=== PATIENT | female | born 1945 | race Caucasian/White ===

== ENCOUNTER 2017-07-18 10:55 | Day surgery (SDC) | payer MEDICARE, OTHER ==
[~2017-07-18] VITALS: Ht 152.4 cm; Wt 44.5 kg
[~2017-07-18 10:55] MED LIST: ALTACE10 MG PO; ASPIRIN EC81 MG PO; BRIMONIDINE TART5 ML OPTH; CALCARB 600 W-1 EACH PO; CARVEDILOL12.5 MG PO; CITALOPRAM HBR20 MG PO; CLONIDINE HCL0.1 MG PO; COREG6.25 MG PO; CRESTOR40 MG PO; DORZOLAMIDE-TIM10 ML OPTH; HYDROCHLOROTHIA25 MG PO; LATANOPROST2.5 ML OPTH; LISINOPRIL20 MG PO; METOPROLOL TART25 MG PO; METOPROLOL TART50 MG PO; NICOTINE GUM4 MG BUCCAL; NORVASC10 MG PO; OXCARBAZEPINE300 MG PO; OXCARBAZEPINE600 MG PO; SYSTANE BALANCE10 ML OPTH; TIMOLOL MALEATE5 M2 OP
--- NOTE | 2017-07-18 12:24 | NUR ---
07/18/17 Jamia4 Jacklyn Herzog 1219-PATIENT ARRIVED TO PACU ON 3L NC O2 SAT 100% CO2 45. PATIENT LAYING ON RIGHT LATERAL SIDE. REACTIVE OPENS EYES TO VERBAL STIMULI VERY DROWSY. RR EVEN. IVF INFUSING. BANDAID CDI.
== END 2017-07-18 14:00 | disposition home or self-care (01) ==
LOC: DS 10:55 → OPS 10:55 → DS 12:00 → OPS 14:00
PROVIDERS: Specialist
PROC: 07JT3ZZ Inspection of Bone Marrow, Percutaneous Approach (ICD-10-PCS; principal; 2017-07-18 12:00)
DX: C94.6 Myelodysplastic disease, not elsewhere classified (principal); D47.3 Essential (hemorrhagic) thrombocythemia; I10 Essential (primary) hypertension; E78.5 Hyperlipidemia, unspecified; J44.9 Chronic obstructive pulmonary disease, unspecified; F17.210 Nicotine dependence, cigarettes, uncomplicated; Z79.899 Other long term (current) drug therapy; Z79.82 Long term (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; Z85.3 Personal history of malignant neoplasm of breast; Z85.43 Personal history of malignant neoplasm of ovary
CPT/HCPCS: 85025; 99152; 99153; J2250; J3010

== ENCOUNTER 2018-06-11 07:32 | Day surgery (SDC) | payer MEDICARE, OTHER ==
[~2018-06-11] VITALS: Ht 152.4 cm; Wt 59.4 kg
[~2018-06-11 07:32] MED LIST changes: +GABAPENTIN300 MG PO; +IBU800 MG PO; +IBUPROFEN800 MG PO; +IPRAT-ALBUT 0.5-3 ML INH; +NITROSTAT0.4 MG SL
--- NOTE | 2018-06-11 08:12 | NUR ---
0805-PATIENT REPORTED HAD CHEST PAIN ACHE MID STERNUM LAST WEEK TOOK 4 TUMS AND WENT AWAY. 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 DISCUSSED WITH DR. CURTIS ORDER OBTAINED FOR EKG.
--- NOTE | 2018-06-11 09:38 | NUR ---
06/11/18 0938 Jia Leal 0981 PATIENT ARRIVES TO PACU SLEEPING, AWAKENS WITH VERBAL STIMULI, THEN BACK TO SLEEP. RESP EVEN AND UNLABORED, OCCASIONAL SNORING, NC AT 2 LITERS ON ARRIVAL, SATS 98%.
--- NOTE | 2018-06-11 10:54 | NUR ---
CALL LIGHT W/IN REACH. ICED WATER GIVEN. CONTINUOUS PULSE OXIMETRY IN PLACE.
--- NOTE | 2018-06-11 11:53 | NUR ---
PATIENT OPENS HER EYES AND ASKS "AM I DONE?" WHEN THIS RN CONFIRMS, PATIENT REPORTS "THAT'S COOL. NOW I CAN GO HOME AND GO TO BED." PATIENT FALLS QUICKLY BACK TO SLEEP WHEN LEFT UNSTIMULATED. CONTINUOUS PULSE OXIMETER REMAINS IN PLACE. OXYGEN SATURATION 95% ON RA.
--- NOTE | 2018-06-11 13:51 | NUR ---
LE 1300: PATIENT PUSHES CALL LIGHT AND ASKS TO GO HOME. PATIENT STANDS AT THE BEDSIDE AND REPORTS FEELING "HEAVY". DISCHARGE INSTRUCTIONS GIVEN AND PATIENT IS GETTING DRESSED. PATIENT IS ASSISTED WITH HER SOCKS AND SHOES AND PATIENT TRANSFERS HERSELF TO AND THEN TO PERSONAL VEHICLE AND TOLERATES THAT WELL.
--- NOTE | 2018-06-12 07:58 | OR ---
[facility] [address], [place] [address] Signed DATE OF OPERATION: 06/11/2018 SURGEON: João Curtis MD PREOPERATIVE DIAGNOSES: 1. Personal history of colonic polyps. 2. Diverticulosis. 3. Internal hemorrhoids. 4. Chronic constipation and diarrhea. POSTOPERATIVE DIAGNOSES: 1. Moderate sigmoid diverticulosis. 2. 4 mm polyps at 20 cm and proximal right colon. 3. Moderate internal hemorrhoids. 4. Narrow angulated sigmoid colon. PROCEDURES: Colonoscopy with hot biopsy. ESTIMATED BLOOD LOSS: None. INDICATIONS: Danielle is a 72-year-old female who returns now for a followup colonoscopy. She has a personal history of colonic polyps along with diverticulosis and internal hemorrhoids. She also describes chronic constipation and diarrhea. She and her have been using Benefiber with good results. She told me there is no family history of colon cancer or polyps. She returns now for followup colonoscopy. I gave her a pamphlet on colonoscopy. We looked at that together along with the risks including, but not limited to gas, bloating, crampy abdominal pain, bleeding, perforation, requiring surgery, and missed diagnosis. We also discussed the need for IV conscious sedation. She had expressed understanding and wished to proceed. PROCEDURE NOTE: Danielle was taken into our endoscopy suite and placed in the left lateral decubitus position. She was given IV sedation with 5 mg of Versed and 100 mcg of fentanyl. She was also given 1 mg of glucagon to help with the procedure. A digital rectal exam was performed and this was unremarkable. The adult colonoscope was introduced and advanced under direct visualization of camera without difficulty. Danielle is small of build at 5 foot tall, 131 pounds, and a body mass index of 25. Consequently, her sigmoid colon is Electronically Signed By: JOÃO CURTIS MD 06/12/18 0758 PATIENT NAME: DANIELLE LEMONS OPERATIVE REPORT DATE OF : 43 REPORT #: [id number] PHYSICIAN: JOÃO CURTIS MD PCP: ALLIE NUNO REPORT IS CONFIDENTIAL AND NOT TO BE RELEASED WITHOUT AUTHORIZATION [facility] [address], [place] [address] Signed also somewhat narrow and angulated. It also has diverticula. It took a few minutes to get through that area with copious amounts of lubrication. After that, her left colon, transverse colon, and right colon opened up quite nicely. We eventually made out way over to the cecum where we could easily see the appendiceal orifice and the ileocecal valve. We did use some abdominal compression along with some extra sedation in order to help. Her prep was good. The scope was slowly withdrawn. She had a tiny polyp in the proximal right colon as well as at 20 cm, both easily removed with the help of hot biopsy forceps. Her rectum was just large enough to retroflex the scope and she does have some moderate internal hemorrhoids. After this, the gas was suctioned out and the colonoscope removed. Danielle tolerated the procedure quite well. In addition, we did order preoperative EKG and it showed her normal sinus rhythm with right bundle branch block, otherwise seen similar to her previous EKG. Danielle tolerated the procedure quite well. RECOMMENDATIONS: I will see Danielle back in my office in 7 to 14 days to review her results. João Curtis MD ALB/MODL /[id number] cc: MD Allie Cline, [facility] Yifan Gallardo MD Copies: JOÃO CURTIS MD, MERSHED MD ~ Electronically Signed By: JOÃO CURTIS MD 06/12/18 0758 PATIENT NAME: DANIELLE LEMONS OPERATIVE REPORT DATE OF : 43 REPORT #: [id number] PHYSICIAN: JOÃO CURTIS MD PCP: ALLIE NUNO REPORT IS CONFIDENTIAL AND NOT TO BE RELEASED WITHOUT AUTHORIZATION
== END 2018-06-11 13:10 | disposition home or self-care (01) ==
LOC: DS 07:32 → OPS 07:32 → DS 09:00 → OPS 09:00
PROVIDERS: Colon & Rectal Surgery
PROC: 0DBN8ZX Excision of Sigmoid Colon, Via Natural or Artificial Opening Endoscopic, Diagnostic (ICD-10-PCS; 2018-06-11)
PROC: 0DBF8ZX Excision of Right Large Intestine, Via Natural or Artificial Opening Endoscopic, Diagnostic (ICD-10-PCS; principal; 2018-06-11 09:00)
DX: D12.5 Benign neoplasm of sigmoid colon (principal); K64.8 Other hemorrhoids; K56.609 Unspecified intestinal obstruction, unspecified as to partial versus complete obstruction; K57.30 Diverticulosis of large intestine without perforation or abscess without bleeding; I10 Essential (primary) hypertension; K21.9 Gastro-esophageal reflux disease without esophagitis; E78.5 Hyperlipidemia, unspecified; F41.9 Anxiety disorder, unspecified; F32.9 Major depressive disorder, single episode, unspecified; F17.210 Nicotine dependence, cigarettes, uncomplicated; Z86.010 Personal history of colon polyps; Z79.899 Other long term (current) drug therapy; Z79.82 Long term (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
CPT/HCPCS: 99153; G0500; J1610; J2250; J3010; J7120

== ENCOUNTER 2019-06-01 05:07 | Observation (INO) | payer MEDICARE, OTHER ==
[~2019-06-01] VITALS: Ht 152.4 cm; Wt 54.2 kg
[~2019-06-01 05:07] MED LIST changes: -BRIMONIDINE TART5 ML OPTH; +BRIMONIDINE TART5 ML OU; +IBU-200200 MG PO; -IBU800 MG PO
--- OUTSIDE RECORDS SUMMARY | 2019-06-01 05:12 | XMS ---
PreManage Notification: PATRICIA ALTAMIRANO Security Emergency Medical Services Coordinator Events No recent Security Events currently on file CRITERIA MET - Group Notification CARE PROVIDERS RANI NUNO Physician Consulting Property Manager Current PHONE: [phone] RANI NUNO Primary Care Current PHONE: Unknown DR CIERRA AGUIRRE Primary Care 06/17/2016-Current PHONE: [phone] Bryce has no Care Guidelines for this patient. E.D. VISIT COUNT (12 MO.) 1 [facility] 1 SIMRAN Ching Gerhard TOTAL 2 NOTE: Visits indicate total known visits. ED/UCC VISIT TRACKING (12 MO.) 06/01/2019 05:09 [facility] [place] TYPE: Emergency COMPLAINT: - FLU SYMPTOMS 02/05/2019 08:39 [facility] [place] TYPE: Emergency DIAGNOSES: - cough,fever - Bronchitis, not specified as acute or chronic - Chronic obstructive pulmonary disease, unspecified INPATIENT VISIT TRACKING (12 MO.) No inpatient visits to display in this time frame [email or web address]
[2019-06-01] MEDS ORDERED: LISINOPRIL40 MG PO (05:46)
[2019-06-01] MEDS ORDERED: AMLODIPINE BESY10 MG PO (05:48)
--- NOTE | 2019-06-01 10:10 | NUR ---
0923: PT ARRIVED TO MED-SURG VIA Student DesignedCHER. ASSESSMENT COMPLETED, VITAL SIGNS CHECKED AND PT ORIENTED TO HER ROOM. PT DENIES ANY SOB AT REST, SAT 94% ON 2L. SEE ASSESSMENT.
--- NOTE | 2019-06-01 10:37 | NUR ---
Pt ambulated to the br and voided while wearing her o2. Upon return to bed she states her breathing is "worse that when I came here". Sat on 2l is 96%, lung sounds remain decreased and coarse. Called for a breathing treatment. Pt is coughing up large amounts of think yellow mucus which she was encouarged to continue to cough up.
--- NOTE | 2019-06-01 10:58 | NUR ---
PT RESTING IN HER BED AFTER FINISHING HER NEB AND SHE STATES SHE IS FEELING MUCH BETTER NOW. WILL CONTINUE TO MONITOR.
--- NOTE | 2019-06-01 12:58 | NUR ---
PT HAD REMOVED HER O2 AND HER SAT IS 88%. HER O2 WAS REPLACED AT 2L AND SAT INCREASED INTO THE 90'S. PT STATES HER BREATHING IS IMPROVING AT THIS TIME. SEE ASSESSMENT.
--- NOTE | 2019-06-01 13:37 | NUR ---
PT RESTING IN HER BED AND SHE DENIES ANY CURRENT SOB. SAT ON 2L IS 95%, O2 DECREASED TO 1L.
--- NOTE | 2019-06-01 14:37 | NUR ---
Sat on 1L is now 91%, which the pt has been taking on and off since her arrival to this dept. Pt did not eat her soup as she states it taseted bad as it has no salt. She ordered a sandwich and is also complaining that it is not good and she is upset she can't have ham. She informed me that she does not eat low sodium at home. She was instructed as to why it was ordered and she now states she is going home today and that I need to notify Dr Harris.
--- NOTE | 2019-06-01 14:45 | NUR ---
Dr Harris called and notified of the pt's statement that she is going to be discharged this evening. Dr Harris reqeusted the pt ambulate in the halls and see how she tolerates it.
--- NOTE | 2019-06-01 14:57 | NUR ---
PT AMBULATED ONE LAP AROUND THE HALLS AND HER RR IS 24 AND HER SAT ON 1L IS 88%. ONCE SAT DOWN HER SAT QUICKLY INCREASED TO 94% ON HER 1L. PT STATES THAT THIS IS A LONGER DISTANCE THAN SHE CAN NORMALY WALK.
--- NOTE | 2019-06-01 15:05 | NUR ---
O2 removed as ordered.
--- NOTE | 2019-06-01 15:13 | NUR ---
PT AMBULATED TO THE BR ON ROOM AIR AND UPON RETURNING TO BED HER SAT IS 85%. AFTER SITTING IN BED FOR ABOUT A MINUTE HER SAT INCREASED TO 90%.
--- NOTE | 2019-06-01 15:38 | NUR ---
I spoke with the pt per Dr Harris's request and the pt states she is agreeable to not going home today if her diet is changed so she can eat as she likes. Dr Harris notifed.
--- NOTE | 2019-06-01 16:11 | NUR ---
Pt resting at the bedside visiting with her spouse. Pt now is ordering dinner.
--- NOTE | 2019-06-01 17:26 | NUR ---
Pt sitting up at the bedside having dinner at this time. Sat 92% on room air and she states her breathing is "not too bad".
--- NOTE | 2019-06-01 17:54 | NUR ---
PATIENT IN BED WATCHING TV, IN ROOM. CALL LIGHT IN REACH. NO FURTHER NEEDS AT THIS TIME.
--- NOTE | 2019-06-01 18:33 | NUR ---
PT RESTING AT THE BEDSIDE AND STATES SHE IS BREATHING "ANSHUL HEAVY". LUNG SOUNDS ARE COARSE AND DECREASED. RT CALLED FOR A TREATMENT.
--- NOTE | 2019-06-01 19:05 | NUR ---
BEDSIDE REPORT RECEIVED FROM CANDI. PT DENIES NEEDS AT THIS TIME. CALL LIGHT IN REACH.
--- NOTE | 2019-06-01 21:34 | EKG ---
[facility] [address] [facility] [place] [address] Signed Sinus tachycardia Biatrial enlargement Right bundle branch block Abnormal ECG Confirmed by SATINDER REDDING MD ([id number]) on 06/01/2019 9:34:14 PM Electronically Signed By: SATINDER REDDING MD 06/01/19 2134 PATIENT NAME: PATRICIA ALTAMIRANO Electrocardiogram DATE OF : 43 PHYSICIAN: SATINDER REDDING MD REPORT #: [id number] REPORT IS CONFIDENTIAL AND NOT TO BE RELEASED WITHOUT AUTHORIZATION
--- NOTE | 2019-06-01 21:35 | NUR ---
PT ASSESSMENT COMPLETE. PT DENIES PAIN, NAUSEA, OR SOB. PT REPORTS THAT SHE IS OFTEN CONFUSED, STATES THAT SHE KNOWS THAT SHE HAS ALZHEIMER'S. PT IS PLEASANT THROUGHOUT ASSESSMENT. LUNG SOUNDS DIM IN BILATERAL UPPER LOBES, EXPIRATORY WHEEZE AND RHONCI NOTED IN BILATERAL LOWER LOBES. PT REPORTS COUGH WITH MUCOUS PRODUCTION. IV SITE FOUND TO BE LEAKING. NEW IV SITE PLACED. PT TOLERATED WELL. PT DENIES FURTHER NEEDS AT THIS TIME. CALL LIGHT WITHIN REACH.
--- NOTE | 2019-06-02 02:15 | NUR ---
WENT IN TO THE ROOM TO TAKE V/S. PATIENT WOKE UP. THIS CITY ROUTE DRIVER GREETED GOOD MORNING AND TOLD THAT I AM GOING TO TAKE V/S. PATIENT GOT UP AND STATED I NEED TO GO TO THE BATHROOM. THIS CITY ROUTE DRIVER PUT SOCKS ON TO PATIENT. OFFERED WALKER, PATIENT STATED '"DONT NEED WALKER". WALKING TO THE BATHROOM ASKED PATIENT IF SHE IS OKAY. SHE SAID SHE OKAY UNTIL REACHED TO THE BATHROOM STATED A LITTLE DIZZY AND WANTED TO GO BACK TO BED. I HAVE PATIENT SIT ON THE CHAIR AND TURNED THE BATHROOM LIGHT FOR HELP. RN YUKO CAME AND PRIMARY RN SUMMER CAME. PATIENT DID USE THE BATHROOM. PATIENT IS BACK IN BED. V/S AND I&O TAKEN AND CHARTED BY MERRILL WHEELER. DID ASK PATIENT IF ANYTHING ELSE WE CAN DO OR GET SOMETHING. PATIENT DENIES OF FURTHER NEEDS. CALL LIGHT IN REACH.
--- NOTE | 2019-06-02 02:30 | NUR ---
PT ASSESSMENT COMPLETE. PT DENIES PAIN, NAUSEA, OR SOB. PT UP TO BATHROOM WITH DENTAL APPLIANCE REPAIRER ASSISTANCE. PT REPORTING DIZZINESS AFTER WALKING TO THE BATHROOM. PT REMAINS CONFUSED, ANXIOUS AND ANGRY. STATES "SHE JUST CAME IN HERE AND WOKE ME UP, MADE ME GET UP TO THE BATHROOM, AND THAT'S WHY I GOT DIZZY. I NEED TO GET SOME REST". REMINIDED PT THAT WE DISCUSSED POC AT PREVIOUS ASSESSMENT. PT HAS NO RECOLLECTION OF THIS. LUNG SOUNDS CLEAR AT THIS TIME. NO COUGH NOTED DURING ASSESSMENT. PT INQUIRING ABOUT WHAT TIME SHE CAN SEE THE DOCTOR AND GO HOME TOMORROW. EDUCATION PROVIDED. CALL LIGHT IN REACH. PT DENIES FURTHER NEEDS.
--- NOTE | 2019-06-02 04:57 | NUR ---
PT UTILIZES CALL LIGHT, REQUESTS ASSISTANCE TO USE THE BATHROOM. PT STATES SHE NEEDS TO HAVE BM. PT ASSISTED BACK TO BED, STATES THAT SHE DOESN'T FEEL WELL, REPORTS FEELING SOB. SA02 94%. PT CONTINUES TO DISCUSS DISCHARGE. EDUCATION REGARDING STAYING IN THE HOSPITAL IF SHE IS NOT FEELING WELL. PT STATES" I CAN'T STAY HERE, I'VE GOT TO GET HOME TO MY .". PT DENIES FURTHER NEEDS AT THIS TIME. CALL LIGHT IN REACH.
--- NOTE | 2019-06-02 06:52 | NUR ---
PT MOVED TO ROOM 124 DUE TO THE NEED FOR THE ISOLATION ROOM.
--- NOTE | 2019-06-02 08:15 | NUR ---
PT SITTING UP IN BED AWAKE. ALERT AND ORIENTED TO ALL AT THIS TIME. ASSESSMENT COMPLETED. PT DENIES PAIN OR SOB. IV INFUSING WNL. STATES SHE IS NOT HUNGRY AND DOES NOT WANT BREAKFAST. OFFERED ENSURE AND PT DRANK THE WHOLE THING. CALL LIGHT WITHIN REACH, HAS BEEN CALLING APPROPRIATELY.
[2019-06-02] MEDS ORDERED: OXCARBAZEPINE150 MG PO (08:58)
[2019-06-02] MEDS ORDERED: PULMICORT0.5 MG/2 M INH (08:59)
[2019-06-02] MEDS ORDERED: OMEPRAZOLE20 MG PO (09:01)
[2019-06-02] MEDS ORDERED: VENTOLIN HFA18 GM INH (09:05)
[2019-06-02] MEDS ORDERED: DOXYCYCLINE HY100 MG PO (09:07)
[2019-06-02] MEDS ORDERED: PREDNISONE20 MG PO (09:09)
--- NOTE | 2019-06-02 10:20 | NUR ---
PATIENT WAS ADMITTED AT HIGH RISK FOR MALNUTRITION DUE TO RECENT WEIGHT LOSS. STATES SHE WENT DOWN FROM 133-135 LBS TO 119 LBS OVER A FEW MONTHS. SHE DIDN'T HAVE A GREAT APPETITE. 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 WE DISCUSSED EATING/DRINKING ENOUGH TO PREVENT FURTHER WEIGHT LOSS. ORAL NUTRITION SUPPLEMENTS ARE AN OPTION, TOO. WILL REMAIN AVAILABLE.
--- NOTE | 2019-06-02 10:25 | NUR ---
PT SBA TO RESTROOM TO VOID. AT BEDSIDE NOW. PT GETTING DRESSED INDEPENDENTLY. PT AWAITING DC.
--- NOTE | 2019-06-02 16:10 | NUR ---
1030: Discussed educational material with patient regarding COPD. Pt introduced to the COPD stop light system for symproms managment. Recomendation to clinical pharmacy to add LAMA to patient's care plan based on history for COPD admissions and level of shortness of breath. Lastly, pt trained to used quick relief inhaler with space with demo back.
== END 2019-06-02 11:33 | disposition home or self-care (01) ==
LOC: ED 05:07 → MS 05:10
PROVIDERS: ADMIT Internal Medicine
DX: J44.1 Chronic obstructive pulmonary disease with (acute) exacerbation (principal); J96.01 Acute respiratory failure with hypoxia; I10 Essential (primary) hypertension; K21.9 Gastro-esophageal reflux disease without esophagitis; F32.9 Major depressive disorder, single episode, unspecified; Z79.82 Long term (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; Z79.899 Other long term (current) drug therapy
CPT/HCPCS: 36415; 71045; 80048; 80053; 83605; 83735; 83880; 84484; 85025; 87502; 93005; 93010; 94640; 94664; 94760; 96372; 96374; 96375; 96376; 99285-25; 99406; G0378; J0696; J1650; J2930; J7121

== ENCOUNTER 2020-11-15 00:16 | Observation (INO) | payer MEDICARE, OTHER ==
[~2020-11-15] VITALS: Ht 152.4 cm; Wt 47.2 kg
[~2020-11-15 00:16] MED LIST changes: +AMLODIPINE BESY10 MG PO; +DOXYCYCLINE HY100 MG PO; +LISINOPRIL40 MG PO; +OMEPRAZOLE20 MG PO; +OXCARBAZEPINE150 MG PO; +PREDNISONE20 MG PO; +PULMICORT0.5 MG/2 M INH; +VENTOLIN HFA18 GM INH
--- OUTSIDE RECORDS SUMMARY | 2020-11-15 00:18 | XMS ---
PreManage Notification: PATRICIA ALTAMIRANO Security Assistant Printer Floor Covering Events No recent Security Events currently on file CRITERIA MET - Group Notification - [facility] C[facility] There are no care providers on record at this time. Bryce has no Care Guidelines for this patient. ECarmelo VISIT COUNT (12 MO.) 1 SIMRAN Shah TOTAL 1 NOTE: Visits indicate total known visits. ED/UCC VISIT TRACKING (12 MO.) 11/15/2020 00:16 [facility] [place] TYPE: Emergency COMPLAINT: - VOMITING,WEAKNESS INPATIENT VISIT TRACKING (12 MO.) No inpatient visits to display in this time frame [email or web address]
[2020-11-15] MEDS ORDERED: BUDESONIDE0.5 MG/2 M INH (01:03)
[2020-11-15] MEDS ORDERED: CITALOPRAM HBR40 MG PO (01:03)
[2020-11-15] MEDS ORDERED: GERI-KOT8.6 MG PO (01:04)
[2020-11-15] MEDS ORDERED: CARVEDILOL25 MG PO (01:04)
[2020-11-15] MEDS ORDERED: HYDROCHLOROTH12.5 MG PO (01:04)
[2020-11-15] MEDS ORDERED: ROSUVASTATIN CA40 MG NG (01:04)
[2020-11-15] MEDS ORDERED: ALENDRONATE SOD70 MG PO (01:04)
[2020-11-15] MEDS ORDERED: CARBAMAZEPINE300 MG PO (01:04)
[2020-11-15] MEDS ORDERED: GABAPENTIN600 MG (01:06)
--- NOTE | 2020-11-15 01:15 | NUR ---
0029 called to Code CVA in ER. 0054 EKG obtained and given to physician. COVID swab also obtained and sent to lab.
--- NOTE | 2020-11-15 03:16 | NUR ---
0300 - arrived from ED via stretcher. alert and oriented. 0316- On 2LNC, lungs thight with exp wheezing. L forehead hematoma soft, movable. edema both upper lids, unknown if normal,Neuro checks hourly ordered R eye sluggish than Left,,alert and oriented. strong charter bus driver bilat. bruised L chest. skin abrasions L thumb and bandaid over L 1st finfer bony prominences. no edema of LE. IViste RAC intact. slightly irritable mood. smoker, denies need for patch. cooperative
--- NOTE | 2020-11-15 05:09 | NUR ---
RESTING, EYEES CLOSED, NO DISTRESS, IRRITABLE MOOD BUT COOPERATIVE WITH HOURLY NEUROCHECKS, DECREASED HEMATOMA OF L FOREHEAD, SCRAPED AREA MORE NOTICEABLE, R EYE /UPPER EYELID MORE EDEMATOUS THAN L, R PUPIL SLUGGISH. IVF INFUSING, HOB ELEVATED ICE TO HEMATOMA, ALERT AND ORIENTED TO PLACE AND SITUATION BUT NOT TO DATE OR CURRENT WORLD EVENTS
--- NOTE | 2020-11-15 05:36 | NUR ---
PT ADMITTED FROM ED EARLIER, ON O2 2LNC NOT CHRONIC, LUNGS W WHEEZES AND DIM SMOKER, HX COPD. DENIES SOB WITH EXERTION. PT FELL IN ED, AND HAD SOME TRAUMA TO L SIDE. L FOREHEAD HEMATOMA PRESENT ON ADMIT FROM FALL, MUCH IMPROVED AND DOWN INSIZE, SCRAPED AREA PRESENT. R EYE MORE EDEMATOUS THAN L, SLUGGISH L PUPIL, UNKNOWN IF NORMAL, DENIED VISUAL CHAGES. BRUISED L CHEST, SCRAPED AREA L THUMB AND FIRST FINGER TOP BONY AREA, BANDAID IN PLACE. IVF INFUSING W/O PROBLEMS. HOURLY NEURO, NO CHANGES, DISORIENTED TO DATE ONLY, HOB ELEVATED ICE TO HEMATOMA.IRRITABLE MOOD, BUT EASILY REORIENTED
--- NOTE | 2020-11-15 06:20 | NUR ---
PATIENT WAS PICKED UP/ LEFT THE ROOM FOR MRI.
--- NOTE | 2020-11-15 07:39 | NUR ---
Patient sitting up on edge of bed, alert/oriented to self, place and situation. Patient unable to tell me the date. Patient denies pain at this time. Upper and lower extremities are strong and equal. Speech is appropriate and clear. Breakfast ordered. No needs. Personal supplies and call light within reach.
--- NOTE | 2020-11-15 08:17 | NUR ---
WHITEBORD WAS UPDATED. PT WAS IN BED EATING BREAKFAST. PT REFUSED WARM WASHCLOTH. NO FURTHER NEEDS AT THIS TIME. CALL LIGHT IS WITHIN REACH.
--- NOTE | 2020-11-15 09:15 | NUR ---
PATIENT UP TO AMBULATE IN HALLWAY, PER HER NORMAL AMBULATING FROM HER CHAIR TO BATHROOM. PATIENT DID WELL WITH LIGHT ASSIST (ARM SUPPORT FROM NURSING STAFF) AND WAS STEADY ON HER FEET.
--- NOTE | 2020-11-15 09:27 | NUR ---
PATIENT WAS IN BED, NURSE IN ROOM, PATIENT WAS ENCOURAGED TO DO BREATHING EXERCISES EVERY HOUR, AND TO PRONE TO HELP HER LUNGS, PATIENT WILL GO ON A WALK WITH THIS CNA2 A LITTLE LATER. NURSE CHARTED VITAL SIGNS NOTHING ELSE TO REPORT AT THIS TIME
--- NOTE | 2020-11-15 09:31 | NUR ---
PATIENT WENT FOR A WALK WITH CHARGE NURSE, THIS CNA2 FOLLOWED WITH WHEEL CHAIR, PATIENT DID WELL WITH AMBULATION, IN ROOM, WILL RETURN TO DO VITAL SIGNS
--- NOTE | 2020-11-15 09:40 | NUR ---
I was able to meet with Danielle and her this morning to discuss her patient care experience. Danielle reported that she has been happy with her care in the hospital. She feels that the nurses "have taken good care of me" and she feels like she understands her medications, why she is taking them, and the side effects that they could have. She denies pain at this time, and she does not have any questions or concerns expressed to this RN. Her remains in the room with her, both are a bit hard of hearing, but they do understand the questions asked as evidenced by their ability to answer appropriately and in context of the questions asked.
--- NOTE | 2020-11-15 17:19 | EKG ---
[facility] [address] [place] [address] Signed Sinus rhythm with 1st degree AV block Right bundle branch block Abnormal ECG When compared with ECG of 01-JUN-2019 05:29, ND interval has increased Confirmed by THIAGO RESENDIZ MD ([id number]) on 11/15/2020 5:19:22 PM Electronically Signed By: THIAGO RESENDIZ MD 11/15/20 1719 PATIENT NAME: ADARSHPATRICIA MIKE Electrocardiogram DATE OF : 43 PHYSICIAN: THIAGO RESENDIZ MD REPORT #: [id number] REPORT IS CONFIDENTIAL AND NOT TO BE RELEASED WITHOUT AUTHORIZATION
== END 2020-11-15 10:40 | disposition home or self-care (01) ==
LOC: ED 00:16 → MS 00:17
PROVIDERS: ADMIT Internal Medicine; ATTEND Internal Medicine
DX: R42 Dizziness and giddiness (principal); I10 Essential (primary) hypertension; J44.9 Chronic obstructive pulmonary disease, unspecified; F17.210 Nicotine dependence, cigarettes, uncomplicated; I44.0 Atrioventricular block, first degree; I65.21 Occlusion and stenosis of right carotid artery; I45.10 Unspecified right bundle-branch block; S00.03XA Contusion of scalp, initial encounter; Z20.822 Contact with and (suspected) exposure to COVID-19; W19.XXXA Unspecified fall, initial encounter; Y92.009 Unspecified place in unspecified non-institutional (private) residence as the place of occurrence of the external cause
CPT/HCPCS: 70450; 70496; 70498; 70551; 71045; 80053; 84484; 85025; 85610; 85730; 93005; 93010; 94760; 96374; 99285-25; C9803; G0378; J2405; J7040; J7121; Q9967; U0003

== ENCOUNTER 2021-03-07 14:27 | Emergency (ER) | payer MEDICARE, OTHER ==
[~2021-03-07] VITALS: Ht 152.4 cm; Wt 44.0 kg
[~2021-03-07 14:27] MED LIST changes: +ALENDRONATE SOD70 MG PO; +BUDESONIDE0.5 MG/2 M INH; +CARBAMAZEPINE300 MG PO; +CARVEDILOL25 MG PO; +CITALOPRAM HBR40 MG PO; +GERI-KOT8.6 MG PO; +HYDROCHLOROTH12.5 MG PO; +NEURONTIN300 MG PO; +ROSUVASTATIN CA40 MG NG
--- OUTSIDE RECORDS SUMMARY | 2021-03-07 14:28 | XMS ---
PreManage Notification: PATRICIA ALTAMIRANO Security Student Recruiter Events No recent Security Events currently on file CRITERIA MET - PDMP - Group Notification CARE PROVIDERS MANDI ALEXANDER [facility] 11/15/2020-Current PHONE: [phone] Bryce has no Care Guidelines for this patient. Care History Medical/Surgical 11/15/2020 [facility] - Patient is currently established with [facility]. If patient is seen in the ED during business hours. Please contact CHWs at [facility]. Care Recommendation: If this patient has had 5 or more Emergency Department visits in the last 12 months.\T\nbsp; Patient will require education on the scope and purpose of the ED as an acute care provider not a Primary Care Provider and should not be utilized for chronic conditions.\T\nbsp; These are guidelines and the provider should exercise clinical judgment when providing care. E.D. VISIT COUNT (12 MO.) 2 [facility] TOTAL 2 NOTE: Visits indicate total known visits. ED/UCC VISIT TRACKING (12 MO.) 03/07/2021 14:27 [facility] [place] TYPE: Emergency COMPLAINT: - DIZZINESS 11/15/2020 00:16 [facility] [place] TYPE: Emergency COMPLAINT: - VOMITING,WEAKNESS INPATIENT VISIT TRACKING (12 MO.) 11/15/2020 00:[address] [facility] [place] TYPE: Observation COMPLAINT: - ACUTE VERTIGO DIAGNOSES: - Chronic obstructive pulmonary disease, unspecified - Nicotine dependence, cigarettes, uncomplicated - Unspecified place in unspecified non-institutional (private) residence as the place of occurrence of the external cause - Essential (primary) hypertension - Atrioventricular block, first degree - Unspecified fall, initial encounter - Occlusion and stenosis of right carotid artery - Unspecified right bundle-branch block - Contusion of scalp, initial encounter - Dizziness and giddiness [id number]
[2021-03-07] MEDS ORDERED: TRANSDERM-SCOP1 EACH TD (18:19)
== END 2021-03-07 18:24 | disposition home or self-care (01) ==
LOC: ED 14:27
DX: R42 Dizziness and giddiness (principal); I10 Essential (primary) hypertension; J44.9 Chronic obstructive pulmonary disease, unspecified; F17.200 Nicotine dependence, unspecified, uncomplicated; Z79.899 Other long term (current) drug therapy; Z79.82 Long term (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
CPT/HCPCS: 70450; 99284-25

== ENCOUNTER 2021-05-23 13:10 | Emergency (ER) | payer MEDICARE ==
[~2021-05-23] VITALS: Ht 152.4 cm; Wt 40.4 kg
--- NOTE | ~2021-05-23 | EKG ---
[facility] [address] [facility] [place], [place] [address] Draft EK completed, results pending confirmation PATIENT NAME: PATRICIA ALTAMIRANO Electrocardiogram DATE OF : 43 PHYSICIAN: PRELIMINARY REPORT #: [id number] REPORT IS CONFIDENTIAL AND NOT TO BE RELEASED WITHOUT AUTHORIZATION
[~2021-05-23 13:10] MED LIST changes: +ADULT LOW DOSE81 MG PO; -ASPIRIN EC81 MG PO; +TRANSDERM-SCOP1 EACH TD
--- OUTSIDE RECORDS SUMMARY | 2021-05-23 13:14 | XMS ---
PreManage Notification: PATRICIA ALTAMIRANO Security Paste Up Copy Camera Operator Events No recent Security Events currently on file CRITERIA MET - Group Notification - PDMP - [facility] - Has Care Guidelines CARE PROVIDERS MANDI ALEXANDER [facility] 11/15/2020-Current PHONE: [phone] Bryce has no Care Guidelines for this patient. Care History Medical/Surgical 03/08/2021 [facility] Patient assisted to ER from walk in clinic provider assessment on 03/07/2021 11/15/2020 [facility] - Patient is currently established with [facility]. If patient is seen in the ED during business hours. Please contact CHWs at [facility]. Care Recommendation: If this patient has [...] providing care. E.D. VISIT COUNT (12 MO.) [address] [facility] TOTAL 3 NOTE: Visits indicate total known visits. ED/UCC VISIT TRACKING (12 MO.) 05/23/2021 13:11 [facility] [place] TYPE: Emergency COMPLAINT: - LOW B/P 03/07/2021 14:27 [facility] [place] TYPE: Emergency COMPLAINT: - DIZZINESS DIAGNOSES: - long-term (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 - Essential (primary) hypertension - Dizziness and giddiness - Nicotine dependence, unspecified, uncomplicated - Chronic obstructive pulmonary disease, unspecified - Other log getter (current) drug therapy 11/15/2020 00:16 [facility] [place] TYPE: Emergency COMPLAINT: - VOMITING,WEAKNESS INPATIENT VISIT TRACKING (12 MO.) 11/15/2020 00:17 [facility] [place] TYPE: Observation COMPLAINT: - ACUTE VERTIGO [...] scalp, initial encounter - Dizziness and giddiness [email or web address]
[2021-05-23] MEDS ORDERED: MIRTAZAPINE15 MG PO (13:39)
[2021-05-23] MEDS ORDERED: MECLIZINE HCL25 MG PO (13:40)
== END 2021-05-23 17:16 | disposition home or self-care (01) ==
LOC: ED 13:10
DX: R55 Syncope and collapse (principal); R53.1 Weakness; R63.4 Abnormal weight loss; I10 Essential (primary) hypertension; Z85.43 Personal history of malignant neoplasm of ovary; F17.200 Nicotine dependence, unspecified, uncomplicated; Z79.82 Long term (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; Z79.899 Other long term (current) drug therapy
CPT/HCPCS: 36415; 71045; 80053; 80156; 81001; 83735; 84484; 85025; 93005; 93010; 99284-25; J7040

== ENCOUNTER 2021-07-15 14:26 | Emergency (ER) | payer MEDICARE, OTHER ==
[~2021-07-15] VITALS: Ht 152.4 cm; Wt 36.3 kg
[~2021-07-15 14:26] MED LIST changes: +CEFPODOXIME PR200 MG PO; +MECLIZINE HCL25 MG PO; +MIRTAZAPINE15 MG PO; +NICOTINE LOZENGE4 MG BUCCAL; +NICOTINE1 EAC1 TD
--- OUTSIDE RECORDS SUMMARY | 2021-07-15 14:28 | XMS ---
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 Care History Medical/Surgical 06/15/2021 [facility] Patient scheduled to see PCP Dr. Tong on 06/29/2021 05/24/2021 [facility] Patient has follow up on 05/24/[address] Tong 03/08/2021 [facility] Patient assisted to ER from walk in clinic provider assessment on 03/07/2021 [place] VISIT COUNT (12 MO.) 1 [facility] NOTE: Visits indicate total known visits. ED/UCC VISIT TRACKING (12 MO.) 07/15/2021 14:27 [facility] [place] TYPE: Emergency COMPLAINT: - SLURRED SPEECH, UNABLE TO WALK 07/12/2021 00:05 [facility] TYPE: Emergency DIAGNOSES: - Other cranial cerebrospinal fluid leak - Difficulty Breathing - Hypoxemia - Anemia, unspecified - Altered mental status, unspecified 06/14/2021 21:47 [facility] [place] TYPE: Emergency COMPLAINT: - LOW OXYGEN 05/23/2021 13:11 [facility] [place] TYPE: Emergency COMPLAINT: - LOW B/P DIAGNOSES: - Abnormal weight loss - Essential (primary) hypertension - Nicotine dependence, unspecified, uncomplicated - ad terminal makeup operator (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 - Other vermin exterminator (current) drug therapy - Weakness - Syncope and collapse - Personal history of malignant neoplasm of ovary 03/07/2021 14:27 [facility] [place] TYPE: Emergency COMPLAINT: - DIZZINESS DIAGNOSES: - ad terminal makeup operator (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 - Essential (primary) hypertension - Dizziness and giddiness - Nicotine dependence, unspecified, uncomplicated - Chronic obstructive pulmonary disease, unspecified - Other vermin exterminator (current) drug therapy 11/15/2020 00:16 [facility] [place] TYPE: Emergency COMPLAINT: - VOMITING,WEAKNESS INPATIENT VISIT TRACKING (12 MO.) [facility] TYPE: [facility] Medicine DIAGNOSES: - Chronic obstructive pulmonary disease with (acute) exacerbation - Anemia, unspecified - Other cranial cerebrospinal fluid leak - Hypoxemia - Altered mental status, unspecified 06/14/2021 21:48 [facility] TYPE: Observation COMPLAINT: - SEPSIS, RESPIRATORY VS UTI SOURCE DIAGNOSES: - Contact with and (suspected) exposure to COVID-19 - Essential (primary) hypertension - Sepsis, unspecified organism - Disorder of facial nerve, unspecified - Acute cystitis without hematuria - Nicotine dependence, unspecified, uncomplicated - Chronic obstructive pulmonary disease, unspecified - Hyperlipidemia, unspecified 11/15/2020 00:17 [facility] [place] TYPE: Observation [...] scalp, initial encounter - Dizziness and giddiness [id number]
[2021-07-15] MEDS ORDERED: AUGMENTIN 500-1 EACH PO (18:36)
--- NOTE | 2021-07-15 18:56 | EKG ---
[facility] [address] [place] [address] Signed Normal sinus rhythm Right atrial enlargement Right bundle branch block Abnormal ECG When compared with ECG of 14-JUN-2021 22:06, Criteria for Septal infarct are no longer present Confirmed by THIAGO RESENDIZ MD ([id number]) on 07/15/2021 6:56:16 PM Electronically Signed By: THIAGO RESENDIZ MD 07/15/21 1856 PATIENT NAME: ADARSHPATRICIA GONZALEZ Electrocardiogram DATE OF : 43 PHYSICIAN: THIAGO RESENDIZ MD REPORT #: [id number] REPORT IS CONFIDENTIAL AND NOT TO BE RELEASED WITHOUT AUTHORIZATION
== END 2021-07-15 19:15 | disposition home or self-care (01) ==
LOC: ED 14:26
DX: N39.0 Urinary tract infection, site not specified (principal); R53.1 Weakness; I10 Essential (primary) hypertension; J44.9 Chronic obstructive pulmonary disease, unspecified; Z85.43 Personal history of malignant neoplasm of ovary; Z85.3 Personal history of malignant neoplasm of breast; F17.200 Nicotine dependence, unspecified, uncomplicated; Z88.8 Allergy status to other drugs, medicaments and biological substances; Z79.899 Other long term (current) drug therapy; Z79.82 Long term (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
CPT/HCPCS: 36415; 71045; 80053; 81001; 85025; 85060; 87088; 93005; 93010; 99285-25

== ENCOUNTER 2021-07-31 15:06 | Emergency (ER) | payer OTHER, MEDICARE ==
[~2021-07-31] VITALS: Ht 152.4 cm; Wt 34.0 kg
[~2021-07-31 15:06] MED LIST changes: +AUGMENTIN 500-1 EACH PO
--- OUTSIDE RECORDS SUMMARY | 2021-07-31 15:09 | XMS ---
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 Care History Medical/Surgical 07/19/2021 [facility] Follow up visit with PCP Dr. Tong on 07/27/2021. 06/15/2021 [facility] Patient scheduled to see PCP Dr. Tong on 06/29/2021 05/24/2021 [facility] Patient has follow up on 05/24/[address] Alycia Crockett VISIT COUNT (12 MO.) 1 [facility] 6 [facility] TOTAL 7 NOTE: Visits indicate total known visits. 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 - Chronic obstructive pulmonary disease, unspecified 07/12/2021 00:05 [facility] TYPE: Emergency DIAGNOSES: - Other cranial cerebrospinal fluid leak - Difficulty Breathing - Hypoxemia - Anemia, unspecified - Altered mental status, unspecified 06/14/2021 21:47 [facility] TYPE: Emergency COMPLAINT: - LOW OXYGEN 05/23/2021 13:11 [facility] [place] TYPE: Emergency COMPLAINT: - LOW B/P DIAGNOSES: - Abnormal weight loss - Essential (primary) hypertension - Nicotine dependence, unspecified, uncomplicated - 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 - Other watermaster (current) drug therapy - Weakness - Syncope and collapse - Personal history of malignant neoplasm of ovary 03/07/2021 14:27 [facility] [place] TYPE: Emergency COMPLAINT: - DIZZINESS DIAGNOSES: - 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 - Essential (primary) hypertension - Dizziness and giddiness - Nicotine dependence, unspecified, uncomplicated - Chronic obstructive pulmonary disease, unspecified - Other watermaster (current) drug therapy 11/15/2020 00:16 [facility] TYPE: Emergency COMPLAINT: - VOMITING,WEAKNESS INPATIENT VISIT TRACKING (12 MO.) 07/12/2021 00:05 [facility] TYPE: Internal Medicine DIAGNOSES: - Chronic obstructive pulmonary disease with (acute) exacerbation - Anemia, unspecified - Other cranial cerebrospinal fluid leak - Hypoxemia - Altered mental status, unspecified 06/14/2021 21:48 [facility] [place] TYPE: Observation COMPLAINT: - SEPSIS, RESPIRATORY VS [...] - Contusion of scalp, initial encounter - Contact with and (suspected) exposure to COVID-19 - Dizziness and giddiness [id number]
== END 2021-07-31 19:50 | disposition home or self-care (01) ==
LOC: ED 15:06
DX: S01.112A Laceration without foreign body of left eyelid and periocular area, initial encounter (principal); I10 Essential (primary) hypertension; J44.9 Chronic obstructive pulmonary disease, unspecified; F17.200 Nicotine dependence, unspecified, uncomplicated; W18.30XA Fall on same level, unspecified, initial encounter; Z79.899 Other long term (current) drug therapy; Z79.82 Long term (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
CPT/HCPCS: 70450; 90715

== ENCOUNTER 2021-08-18 20:15 | Inpatient (IN) | payer MEDICARE, OTHER ==
[~2021-08-18] VITALS: Ht 152.4 cm; Wt 36.2 kg
--- OUTSIDE RECORDS SUMMARY | 2021-08-18 20:18 | XMS ---
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 Care History Medical/Surgical 07/19/2021 [facility] Follow up visit with PCP Dr. Tong on 07/27/2021. 06/15/2021 [facility] Patient scheduled to see PCP Dr. Tong on 06/29/2021 05/24/2021 [facility] Patient has follow up on 05/24/[address] Alycia Crockett VISIT COUNT (12 MO.) 1 [facility] 7 [facility] TOTAL 8 NOTE: Visits indicate total known visits. ED/UCC VISIT TRACKING (12 MO.) 08/18/2021 20:16 [facility] [place] TYPE: Emergency COMPLAINT: - STROKE SYMPTOMS 07/31/2021 15:07 [facility] [place] TYPE: Emergency COMPLAINT: - FALL/L EYE INJURY DIAGNOSES: - Laceration without foreign body of left eyelid and periocular area, initial encounter - Nicotine dependence, unspecified, uncomplicated - Chronic obstructive pulmonary disease, unspecified - Fall on same level, unspecified, initial encounter - Laceration without foreign body of other part of head, initial encounter - Other tank terminal gauger (current) drug therapy - Essential (primary) hypertension - group home (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 07/15/2021 14:27 [facility] [place] TYPE: Emergency COMPLAINT: - SLURRED SPEECH, UNABLE TO WALK DIAGNOSES: - Allergy status to other drugs, medicaments and biological substances - Weakness - Other tank terminal gauger (current) drug therapy - Essential (primary) hypertension - Nicotine dependence, unspecified, uncomplicated - Personal history of malignant neoplasm of ovary - Personal history of malignant neoplasm of breast - Urinary tract infection, site not specified - vermin exterminator (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 - Chronic obstructive pulmonary disease, unspecified 07/12/2021 00:05 [facility] TYPE: Emergency DIAGNOSES: - Other cranial cerebrospinal fluid leak - Difficulty Breathing - Hypoxemia - Anemia, unspecified - Altered mental status, unspecified 06/14/2021 21:47 [facility] [place] TYPE: Emergency COMPLAINT: - LOW OXYGEN 05/23/2021 13:11 [facility] [place] TYPE: Emergency COMPLAINT: - LOW B/P DIAGNOSES: - Abnormal weight loss - Essential (primary) hypertension - Nicotine dependence, unspecified, uncomplicated - vermin exterminator (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 - Other tank terminal gauger (current) drug therapy - Weakness - Syncope and collapse - Personal history of malignant neoplasm of ovary 03/07/2021 14:27 [facility] [place] TYPE: Emergency COMPLAINT: - DIZZINESS DIAGNOSES: - group home (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 - Essential (primary) hypertension - Dizziness and giddiness - Nicotine dependence, unspecified, uncomplicated - Chronic obstructive pulmonary disease, unspecified - Other halfway (current) drug therapy 11/15/2020 00:16 [facility] [place] TYPE: Emergency COMPLAINT: - VOMITING,WEAKNESS INPATIENT VISIT TRACKING (12 MO.) 07/12/2021 00:05 [facility] TYPE: Internal Medicine DIAGNOSES: - [...] exposure to COVID-19 - Dizziness and giddiness [email or web address]
--- NOTE | 2021-08-19 | NUR ---
PT HERE AT 2340- 08/18.. MOVED OVER TO [facility] BED, VITALS DONE, BED ALARM SET - 08/19.. PT GETTING OOB, IN TO ASSIST RN WITH 2PA PIVOT TO BSC, VOIDED AND BACK TO BED, ALARM RESUMED, NO FURTHER NEEDS AT THIS TIME
--- NOTE | 2021-08-19 00:11 | NUR ---
[facility] AND WAS MOVED OVER TO BED VIA DRAWSHEET. VS TAKEN AND ENTERED WITH BENJAMÍN KENNY. 2P HEAVY ASSIST TO BSC AND BACK TO BED. PT WAS UNABLE TO FOLLOW DIRECTIONS AND NEEDED ALOT OF HELP. PT IS A POOR HISTORIAN AND NOT ABLE TO ANSWER HISTORY QUESTIONS APPROPRIATELY. COMPLETED HX FROM MEDICAL RECORD PT IS HERE ALONE. BED ALARM IS ON AND PT IS NOW RESTING WITH EYES CLOSED. RR IS EVEN AND UNLABORED. CALL LIGHT IS CLOSE.
--- NOTE | 2021-08-19 00:43 | NUR ---
ASSESSMENT COMPLETE, pt AWAKE AND RESTING IN BED. IV SITE WNL, FLUSHES EASILY AND IS SALINE LOCKED. pt NPO PER MD ORDERS, SLURRED SPEECH NOTED AND pt HAS DIFFICULTY FOLLOWING COMMANDS, CLINICAL JUDGEMENT TO HOLD BEDSIDE SWALLOW EVAL AND WAIT FOR SPEECH THERAPY. EQUAL STRONG TECHNICAL ACCOUNT MANAGER NOTED IN BUE, WHEN ASKED TO BLU UPPER EXTREMITIES FOR 10 SECONDS, pt STATES, "OKAY" THEN BENDS ARM AND PLACES OVER FOREHEAD. ORIENTED TO NAME AND , pt CLAIMED SHE IS IN "[place]" AND UNABLE TO TELL THE DATE OR TIME. PUPILS ROUND AND REACTIVE TO LIGHT. VARIOUS 4X4 GAUZES NOTED TO BUE, LIKELY FROM IV ATTEMPTS OR LAB DRAWS. DRY/CRUSTY ABRASION NOTED ABOVE LEFT EYE, NO DRAINAGE NOTED. BED ALRM ON AND CALL LIGHT IN REACH.
--- NOTE | 2021-08-19 00:58 | NUR ---
pt NPO AND IS SALINE LOCKED, TELEPHONE ORDERS READ BACK FOR NORMAL SALINE AT 100MLS/HR CONTINUOUSLY. PER DR PIERSON, NO NEED FOR TELE AT THIS TIME. NURSE TRANSITIONALMERRILL BRASHRE.
--- NOTE | 2021-08-19 01:19 | NUR ---
IV FLUIDS NOW INFUSING DIRECTED, IV SITE WNL AND FLUSHES EASILY. CALL LIGHT IN REACH AND BED ALARM ON FOR SAFETY. SPO2 95% ON 2LNC, WILL MONITOR.
--- NOTE | 2021-08-19 02:10 | NUR ---
ROUNDED ON pt, IV FLUIDS INFUSING DIRECTED. IV SITE WNL. BED ALARM ON AND CALL LIGHT IN REACH.
--- NOTE | 2021-08-19 03:58 | NUR ---
pt CONTINUES TO REST QUIETLY IN BED, EYES CLOSED AND RR EVEN AND UNLABORED. SPO2 LOW TO MID 90'S ON 2LNC. WILL CONTINUE TO MONITOR, CALL LIGHT IN REACH AND BED ALARM IS ON. pt ABLE TO TURN SELF AND MAKE POSITION CHANGES ON HER OWN.
--- NOTE | 2021-08-19 04:15 | NUR ---
PT HEARD FROM THE RN STATION, WILLA BUCK, IN TO CHECK ON PT, PT DENIES NEEDS AND TOILETING, PT IS DRY WITH ATTENDS, VSS, BOOSTED IN BED, NO FURTHER NEEDS AT THIS TIME
--- NOTE | 2021-08-19 04:20 | NUR ---
RESTLESS NOTED, ZOYA BUTTS AND THIS RN IN ROOM TO ASSESS. pt AWAKE AND RESTING IN BED ON 2LNC-RR EVEN AND UNLABORED. VSS, pt TITRATED TO 1LNC, WILL MONITOR. pt REPORTS PAIN WHEN ASKED IN "MY LUNGS", pt THEN STATES, "IT'S BECAUSE THEY'RE ENLARGED". LUNG SOUNDS CLEAR, NO RESP DISTRESS NOTED, WILL MONITOR. HOB ELEVATED FOR COMFORT, pt REPORTS INTERVENTION HELPFUL. pt ABLE TO STATE NAME AND DAY/MONTH OF BIRTHDAY, UNABLE TO REPORT YEAR OF . REPORTS BEING [place] WHEN INITIALLY ASKED WHERE SHE WAS AT, pt WOULD REPEATEDLY RESTATE HER BIRTHDAY. SLURRED SPEECH REMAINS NOTED, NO FACIAL DROOPING. STRONG EQUAL INDUSTRIAL ROOFER IN BILATERAL HANDS AND ABLE TO HOLD EACH UPPER EXTREMITY FOR APPROX 10 SECONDS AND ABLE TO FOLLOW COMMANDS SUCH TURNING IN BED AND SITTING UP TO LISTEN TO POSTERIOR LUNG SOUNDS. NO CHANGES TO PUILS FROM INITIAL ASSESSMENT, REMAINS SLIGHTLY SLUGGISH. BED ALARM ON, ATTENDS REMAINS DRY. CALL LIGHT IN REACH.
--- NOTE | 2021-08-19 06:10 | NUR ---
pt FORGETFUL AND NOT FULLY ORIENTED. DISCUSSED WITH IMAGING DEPARTMENT pt HAS ORDERED MRI. PER IMAGING, HAVE STAFF CALL OR VISIT WITH pt's ALICIA TO BETTER OBTAIN INFO FOR MRI SCREENING FORM. MRI MACHINE UNAVAILABLE UNTIL AT LEAST NOON PER IMAGING DEPARTMENT. HAZMAT CDL DRIVER UPDATED.
--- NOTE | 2021-08-19 06:27 | NUR ---
BED ALARM GOING OFF, pt ATTEMPTING TO GET OOB AND RESTLESS. pt UP 2PA TO BSC, BETTER AT FOLLOWING COMMANDS. REMAINS ORIENTED ONLY TO SELF, SPO2 DROPPED TO MID 80'S, 2LNC RESUMED AND SPO2 QUICKLY ROLA TO LOW TO MID 90'S. pt THEN GOT UPSET AND STATES, "I WANT TO GET UP" AND "I WANT TO VISIT MY AND HAVE HIM SEE ME". pt REORINETED TO PLACE AND TIME AND THAT SHE WAS IN THE HOSPITAL, pt THEN STATES, "I KNOW I'M IN THE HOSPITAL, I'M NOT STUPID". THERAPEUTIC COMMUNICATION PROVIDED AND pt REASSURED THAT IS AWARE OF HOSPITALIZATION AND THAT HE PLANS TO COME VISIT HER LATER THIS MORNING. BED ALARM RESUMED AND CALL LIGHT IN REACH. WILL CONTINUE TO MONITOR, IT INFRASTRUCTURE ENGINEER UPDATED.
--- NOTE | 2021-08-19 06:55 | NUR ---
pt CONTINUES TO GET RESTLESS AND DEMANDS TO SEE HER ALICIA VARGAS ON PHONE AND TRANSFERRED TO pt'S ROOM. pt FEELS HER IS LYING TO HER AND WILL NOT COME VISIT HER, pt REASSURED. pt UP 2PA FROM BED TO CHAIR PER pt REQUEST, CHAIR ALARM ON AND CALL LIGHT IN REACH. IV SITE WNL, FLUIDS INFUSING DIRECTED. pt DECLINED MOUTH SWABS pt IS NPO, WILL MONITOR. pt APPEARS MORE RELAXED AFTER TRANSFERRING TO CHAIR, WARM BLANKET PROVIDED AND TV ON TO ACT DISTRACTION. WILL CONTINUE TO MONITOR.
--- NOTE | 2021-08-19 07:24 | NUR ---
Patient awake sitting up in chair, no distress. Patient close to RN stations at this time. Chair alarm intact. Patient denies needs at this time. Personal supplies and call light within reach.
--- NOTE | 2021-08-19 10:09 | NUR ---
INTO PATIENT ROOM TO OBTAIN ASSESSMENT. BENITA RN AT THE BESIDE ATTEMPTING TO COMFORT PATIENT. PATIENT APPEARS TO BE VERY FORGETFUL SHE DID NOT REMEBER BEING INFORMED SHE HAS HAD A STROKE. PATIENT NOT TO ALSO BE ASKING "WHERE AM I." STAFF HAVE ATTEMPTED TO CONTACT PATIENTS ZURDO, BUT HAVE NOT RECVD A RESPONSE AT THIS TIME. WILL ATTEMPT TO MAKE CONTACT WITH PATIENT TO COMPLETE CASE MANAGEMENT ASSESSMENT.
[2021-08-19] MEDS ORDERED: PREDNISONE10 MG PO (10:11)
--- NOTE | 2021-08-19 10:30 | NUR ---
ATIVAN 1MG IV ADMIN AT THIS TIME PRE OP FOR MRI.
--- NOTE | 2021-08-19 11:00 | NUR ---
INTO TO ROOM, PATIENT ZURDO AT BEDSIDE. PATIENT IS UP IN THE AFTER MRI. ZURDO STATES THAT PATIENT LIVES AT HOME WITH HIM AT THIS TIME. THEY HAVE BEEN MANAGING FAIRLY WELL SO FAR. ZURDO STATES PATIENT IS ABLE TO GET TO THE RESTROOM AND FEED HERSELF. PATIENT DOES HAVE A WALKER AT HOME, BUT ZURDO STATES SHE DOES NOT USE IT BECAUSE SHE BELIEVES SHE WILL FALL. PATIENT HAS A RECENT FALL WITH HER WALKER AND HAS BEEN HESITANT SINCE.ZURDO STATES PATIENT HAS HAD INTERMITANT ISSUES WITH MEMORY PRIOR, BUT HAS ALWAYS RECOVERED. ZURDO STATES THAT HER MEMORY ISSUES HAVE WORSEND THIS VISIT AND SHE DID NOT RECOGNIZE HIM WHEN HE ENTERED THE ROOM THIS AM. DISCUSSES FURTHER PALCEMENT OPTIONS OF HOME WITH HOME HEALTH OR SNF PLACEMENT. ZURDO MENTIONS THAT THE PATIENT WAS REFERRED TO HOME HEALTH RECENTLY, BUT REFUSED THE VISIT. ZURDO STATES HE AGREES TO EITHER OPTION. WILL WAIT FOR FURTHER ASSESSMENT BEFORE FURTHER DC PLANNING IS MADE. DURING THIS RNS VISIT WITH THE PATIENT AND HER , THE PATIENT IS ASKING FOR MATCHES. WHEN ASKED WHAT FOR SHE STATES " SO I CAN LIGHT MY CIGARETTE." ZURDO STATES THAT THE PATIENT IS A SMOKER AND IN FACT HAS INCREASED HER SMOKING SENCE HER RECENT SMALL. ZURDO FEELS THAT A NICOTINE PATCH WOULD BE HELFUL. DR. PIERSON ADVISED.
--- NOTE | 2021-08-19 11:56 | NUR ---
PT TAKEN TO IMAGING. WILL FOLLOW
--- NOTE | 2021-08-19 13:50 | NUR ---
Patient in chair resting, no distress. DAY GUARD sitting with patient as she remains confused this afternoon. Patient tolerating a regular diet well. at bedside visiting. No current needs. Personal supplies and call light within reach.
--- NOTE | 2021-08-19 14:03 | NUR ---
PATIENT AND I WALKED TO THE BATHROOM SHE WAS USING HER WALKER. AFTER SHE ATE HER LUNCH. SHE IS NOW IN BED SLEEPING. AND GRAN DAUGHTER IN ROOM.
--- NOTE | 2021-08-19 14:05 | NUR ---
IV infiltrated. Updated Dr. Littlejohn at this time. Ok to leave iv out per Dr. Littlejohn. Patient tolerating po intake at this time.
--- NOTE | 2021-08-19 16:51 | NUR ---
PATIENT IS SLEEPING.
--- NOTE | 2021-08-19 19:20 | NUR ---
RECEIVED REPORT FROM BRENDA GAN. PT SLEEPING, DOESN'T WAKE TO VOICE.
--- NOTE | 2021-08-19 21:30 | NUR ---
in to get vitals for rn
--- NOTE | 2021-08-19 21:36 | NUR ---
CALLED DR PIERSON FOR A PO ORDER FOR PAULINO. READ BACK FOR CONFIRMATION. PT CURRENTLY AWAKE, KNOWS WHERE SHE IS BUT NOT THE CIRCUMSTANCES ABOUT HOW SHE GOT HERE.
--- NOTE | 2021-08-20 00:39 | NUR ---
PT LAYING ON BACK, MOVING BLANKETS AROUND. BED ALARM CONTINUES. ROOM DARK, CURTAIN AND DOOR OPEN.
--- NOTE | 2021-08-20 02:18 | NUR ---
PT RESTING, EYES CLOSED, NO DISTRESS, ON ROOM AIR. BED ALARM ON, CALL LIHGT AT HANDS REACH
--- NOTE | 2021-08-20 06:24 | NUR ---
Pt has slept well this shift. on room air, no cough no sob, no c/o pain. bruised areas over forehead and arms healing. much more alert to self and situation, cooperative when up to BSC, slight unseteady, SBA, voided, back to bed. wears attends. pleasant, tolerating liquids well, no emesis. no IV Bed alarm on, fall precautions in place
--- NOTE | 2021-08-20 07:55 | NUR ---
Patient sitting up in bed drinking coffee, no acute distress. Patient alert to self and place, she agitated, requesting to go home. Called patient's at this time per pt request, handed the phone off to pt so she can speak to her . Bed alarm intact. Encouraged patient to call staff if she has needs. Patient close to RN station.
--- NOTE | 2021-08-20 09:41 | NUR ---
Patient back in room with her and other family members. Told I will notify provider that he is present.
--- NOTE | 2021-08-20 10:15 | NUR ---
Patient agitated standing in hallway with granddaughter. Patient refusing to go back in her room, she is requesting to discharge home. Provider to see patient and to discuss plan of care.
--- NOTE | 2021-08-20 11:06 | NUR ---
Patient refused all morning medications from this RN.
--- NOTE | 2021-08-23 19:03 | EKG ---
[facility] [address] [place] [address] Signed Sinus rhythm with 1st degree AV block Right bundle branch block Abnormal ECG When compared with ECG of 15-JUL-2021 14:37, RI interval has increased Confirmed by SATINDER REDDING MD ([id number]) on 08/23/2021 7:03:01 PM Electronically Signed By: SATINDER REDDING MD 08/23/21 1903 PATIENT NAME: ADARSHPATRICIA MIKE Electrocardiogram DATE OF : 43 PHYSICIAN: SATINDER REDDING MD REPORT #: [id number] REPORT IS CONFIDENTIAL AND NOT TO BE RELEASED WITHOUT AUTHORIZATION
== END 2021-08-20 11:20 | disposition home or self-care (01) | DRG 884 ==
LOC: ED 20:15 → MS 23:06
PROVIDERS: ADMIT Hospitalist; ATTEND Hospitalist
DX: F01.51 Vascular dementia, unspecified severity, with behavioral disturbance (principal); G93.41 Metabolic encephalopathy; I62.03 Nontraumatic chronic subdural hemorrhage; F05 Delirium due to known physiological condition; Z85.43 Personal history of malignant neoplasm of ovary; K59.00 Constipation, unspecified; J44.9 Chronic obstructive pulmonary disease, unspecified; I10 Essential (primary) hypertension; F17.200 Nicotine dependence, unspecified, uncomplicated; Z20.822 Contact with and (suspected) exposure to COVID-19; R47.81 Slurred speech; Z85.3 Personal history of malignant neoplasm of breast; Z90.710 Acquired absence of both cervix and uterus; Z98.890 Other specified postprocedural states; Z79.82 Long term (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; Z79.899 Other long term (current) drug therapy
CPT/HCPCS: 36415; 36600; 51701; 70450; 70496; 70498; 70551; 71045; 80053; 81001; 82803; 83735; 84484; 85025; 85060; 85610; 85730; 87502; 92610; 93005; 93010; 94640; 97162; 99285-25; C9803; J1953; J2060; J2930; J7030; Q9967; U0003